=== PATIENT | female | born 1970 | race Two or more races ===

== ENCOUNTER 2017-09-11 18:01 | Emergency (ER) | payer OTHER, MEDICAID ==
[~2017-09-11] VITALS: Ht 162.6 cm; Wt 72.6 kg
[~2017-09-11 18:01] MED LIST: GLIMEPIRIDE1 MG ORAL; METFORMIN HCL500 M1 ORAL; OMEPRAZOLE40 M1 ORAL; PEPCID40 MG PO
[2017-09-11 18:34] VITALS: BP 125/81
--- NOTE | 2017-09-11 19:05 | Emergency Room Report ---
History of Present Illness General Chief Complaint: General Complaint Source: Patient, Medical Record Present Illness HPI 47 yo female patient presents to ER complaining of right shoulder pain radiating down her arm x 1 week. Patient reports pain with movement of arm; states pain shoots down shoulder. Denies hx of injury. Patient reports sleeping on her right side. Patient denies fever, chest pain, SOB. Denies hx of cardiovascular disease. Allergies: Coded Allergies: No Known Allergies (Unverified , 03/09/16) Patient History Past Medical History: see triage record Reviewed Nursing Documentation: PMH: Agreed, PSxH: Agreed Nursing Documentation-PMH Past Medical History: No History, Except For Hx Diabetes: Yes Review of Systems All Other Systems: negative except mentioned in HPI Physical Exam Vital Signs Date Time Temp Pulse Resp B/P (MAP) Pulse Ox O2 Delivery O2 Flow Rate FiO2 09/11/17 18:17 98.8 93 18 125/81 94 Room Air 98.8 Sp02 EP Interpretation: reviewed, normal General Appearance: well appearing, no apparent distress, alert, GCS 15 Head: normocephalic, atraumatic Eyes: bilateral eye normal inspection, bilateral eye PERRL ENT: hearing grossly normal, normal pharynx, no angioedema, normal voice, uvula midline, moist mucus membranes Neck: full range of motion Respiratory: lungs clear, normal breath sounds, no rhonchi, no respiratory distress, no accessory muscle use, no wheezing, speaking full sentences Cardiovascular #1: regular rate, rhythm, no edema Cardiovascular #2: 2+ carotid (R), 2+ carotid (L), 2+ radial (R), 2+ radial (L) Gastrointestinal: non tender, soft, no mass, non-distended, no guarding, no rebound Genitourinary: no CVA tenderness Musculoskeletal: back normal, digits/nails normal, gait/station normal, normal range of motion, other - Negative Adson sign; positive tinel, positive phalen; NVI, tender - right shoulder Neurologic: alert, oriented x3, responsive, motor strength/tone normal, sensory intact Psychiatric: mood/affect normal Skin: no rash Lymphatic: no adenopathy Medical Decision Making PA Attestation Dr. Gao is my supervising Physician whom patient management has been discussed with. Diagnostic Impression: Primary Impression: Shoulder pain Additional Impression: Upper extremity pain ER Course Pt. presents to the ED c/o right shoulder pain. Ddx considered but are not limited to fracture, sprain, strain, contusion, carpal tunnel syndrome. Patient TTP of right shoulder, has full ROM of shoulder, elbow, and wrist. Shoulder movement with pain. Ordered xray right shoulder. Vital signs: are WNL, pt. is afebrile ORDERS: An X-ray of the right shoulder was ordered, results show no acute fracture, per the preliminary radiology report. ER COURSE: Positive Tinel sign, positive Phalen sign. Patient likely has some median nerve entrapment or irritation. Need to followup with primary care provider for further treatment and referral. Will not place arm in sling, want patient to being ROM exercises for shoulder. Patient reports palpitations with shoulder pain late at night, reports palpitations today. Carotid pulse 2+ bilaterally. Denies hx of arrhythmia. Ordered EKG. Pain medication ordered. EKG negative for arrhythmia, ST elevation. Results discussed with patient. Patient instructed to followup with primary care provider for further treatment and referral to cardiology. Patient reports feeling better following administration of pain medication. DISCHARGE: -Rx provided for Tylenol for pain symptoms. At this time pt. is stable for d/c to home. Patient resting comfortably, in no acute distress, nontoxic appearing, smiling. Will provide printed patient care instructions, and any necessary prescriptions. Patient instructed to follow with primary care provider in 3 - 5 days and to request further orthopedic follow-up. Care plan and follow up instructions have been discussed with the patient prior to discharge. Patient instructed on RICE method: rest, ice, compression, elevation. Patient instructed to WBAT. Take medications as directed. Patient questions asked and answered. ER precautions given, patient instructed to return to ER immediately for any new or worsening of symptoms. EKG Diagnostic Results Rate: normal Rhythm: NSR ST Segments: no acute changes ASA given to the pt in ED: No PA Scribe Text Alejandro Martini PA-C Rhythm Strip Diag. Results EP Interpretation: yes Rate: 87 Rhythm: NSR, no PVC's, no ectopy PA Scribe Julien Martini PA-C Other X-Ray Diagnostic Results Other X-Ray Diagnostic Results : X-Ray ordered: right shoulder # of Views/Limited Vs Complete: 3 View Indication: Pain EP Interpretation: Yes PA Xray: Interpretation reviewed, by supervising MD, and agrees with findings. Interpretation: no dislocation, no soft tissue swelling, no fractures Impression: No acute disease SHWETA Traylor Text Alejandro Martini PA-C Last Vital Signs Date Time Temp Pulse Resp B/P (MAP) Pulse Ox O2 Delivery O2 Flow Rate FiO2 09/11/17 18:34 98.8 18 125/81 94 Room Air 98.8 09/11/17 18:17 93 Disposition: HOME, SELF-CARE Condition: Stable Scripts Acetaminophen* (TYLENOL EXTRA STRENGTH*) 500 Mg Tablet 500 MG ORAL Q8H Y for Prn Headache/Temp > 101, #30 TAB 0 Refills Prov: Zelalem Martini 09/11/17 Patient Instructions: Carpal Tunnel Syndrome, [id number], Shoulder Pain, Easy -to-Read, Shoulder Range of Motion Exercises Additional Instructions: Patient instructed to follow up with primary care provider and discuss further referral to orthopedics for further imaging. Pain may be due to median nerve irritation or entrapment. Followup with cardiology for chest pain and palpitations. Patient instructed on RICE method: rest, ice, compression, elevation. Patient instructed to Weight Bearing As Tolerated. Take medications as directed. Patient questions asked and answered. ER precautions given, patient instructed to return to ER immediately for any new or worsening of symptoms. Zelalem Martini Sep 11, 2017 19:05
[2017-09-11] MEDS ORDERED: TYLENOL EXTRA500 MG ORAL (20:01)
[2017-09-11] MEDS ORDERED: Ketorolac 30mg Inj IM ONE (20:15)
[2017-09-11 20:32] VITALS: BP 125/81
--- NOTE | 2017-09-12 10:29 | Diagnostic Imaging Report ---
Indication: Shoulder pain Findings: 3 views of the right shoulder were obtained. There is a focus of calcification in the rotator cuff adjacent to the greater tuberosity. There is no fracture. There is arthrosis at the acromioclavicular joint. The clavicle is slightly subluxed indicative of a previous ACL injury. IMPRESSION: Mild AC separation. Acuity indeterminate. Mild arthrosis noted. Calcific tendinopathy of the rotator cuff.
--- NOTE | 2017-09-19 16:09 | Cardiology Report ---
APPROVED REPORT EKG Measurement Heart [id number] HI [id number] Normal sinus rhythm Normal ECG
== END 2017-09-11 20:34 | disposition home or self-care (01) ==
LOC: EMR 19:58
DX: M25.511 Pain in right shoulder (principal); M75.31 Calcific tendinitis of right shoulder; S43.101A Unspecified dislocation of right acromioclavicular joint, initial encounter; X58.XXXA Exposure to other specified factors, initial encounter; Y92.9 Unspecified place or not applicable; M19.011 Primary osteoarthritis, right shoulder; E11.9 Type 2 diabetes mellitus without complications
CPT/HCPCS: 29240; 73030; 93005; 96372; 99283; J1885

== ENCOUNTER 2018-09-19 00:57 | Emergency (ER) | payer MEDICAID, OTHER ==
[~2018-09-19] VITALS: Ht 162.6 cm; Wt 88.5 kg
[~2018-09-19 00:57] MED LIST changes: +TYLENOL EXTRA500 MG ORAL
--- NOTE | 2018-09-19 01:00 | NUR ---
ED Nurse Note: Patient not in waiting room, Registration states patient went to the bathroom
--- NOTE | 2018-09-19 01:42 | NUR ---
ED Nurse Note: Pt arrived ED from home, c/o N/V on and off for one week and abdominal pain 01/15. Pt is A/O X4. Vital signs stable at this time, waitng for orders.
[2018-09-19 01:45] VITALS: BP 136/78
--- NOTE | 2018-09-19 01:58 | NUR ---
ED Nurse Note: Blood and urine collected and sent to Lab.
[2018-09-19 02:24] LABS: HEMATOCRIT 41.7 % (37.0-47.0); HEMOGLOBIN 14.1 G/DL (12.0-16.0); MEAN CORPUSCULAR VOLUME 80 FL (80-99); PLATELET COUNT 294 K/UL (150-450); RED BLOOD COUNT 5.19 M/UL (4.20-5.40); RED CELL DISTRIBUTION WIDTH 12.4 % (11.6-14.8); WHITE BLOOD COUNT 9.7 K/UL (4.8-10.8)
[2018-09-19 02:26] LABS: ANION GAP 9 mmol/L (5-15); BLOOD UREA NITROGEN 19 mg/dL (7-18); CALCIUM 8.8 MG/DL (8.5-10.1); CARBON DIOXIDE 26 MMOL/L (21-32); CHLORIDE 101 MMOL/L (98-107); CREATININE 0.8 MG/DL (0.55-1.30); POTASSIUM 3.8 MMOL/L (3.5-5.1); SODIUM 136 MMOL/L (136-145)
[2018-09-19 02:32] LABS: ALANINE AMINOTRANSFERASE 36 U/L (12-78); ALBUMIN 3.6 G/DL (3.4-5.0); ALBUMIN/GLOBULIN RATIO 0.9 (1.0-2.7); ALKALINE PHOSPHATASE 96 U/L (46-116); ASPARTATE AMINO TRANSFERASE 12 U/L (15-37); BILIRUBIN,TOTAL 0.5 MG/DL (0.2-1.0)
[2018-09-19] MEDS ORDERED: Morphine Sulfate 2mg/ml Inj(IV/IM USE ONLY) IVP ONE (02:45)
--- NOTE | 2018-09-19 02:50 | NUR ---
ED Nurse Note: Need more urine sample.
[2018-09-19 03:13] LABS: APPEARANCE,URINE CLEAR; BILIRUBIN, URINE NEGATIVE (NEGATIVE); COLOR,URINE PALE YELLOW; GLUCOSE, URINE (UA) NEGATIVE (NEGATIVE); KETONES,URINE 4+ (NEGATIVE); LEUKOCYTE ESTERASE ,URINE 1+ (NEGATIVE); NITRITE,URINE NEGATIVE (NEGATIVE); PH,URINE 6 (4.5-8.0); PROTEIN,URINE NEGATIVE (NEGATIVE); UROBILINOGEN,URINE NORMAL MG/DL (0.0-1.0)
[2018-09-19] MEDS ORDERED: Isovue-300 100ml vial INJ PRN (04:30)
[2018-09-19] MEDS ORDERED: LOMOTIL TABLET1 EACH ORAL (05:41)
[2018-09-19] MEDS ORDERED: DICYCLOMINE HCL10 MG PO (05:41)
[2018-09-19] MEDS ORDERED: PEPCID AC20 M2 PO (05:41)
[2018-09-19 06:18] VITALS: BP 132/74
--- NOTE | 2018-09-19 06:18 | NUR ---
ER DISCHARGE NOTE: Patient is cleared to be discharged per Dr. Hawthorne. Pt is A/O x4 on room air with stable vital signs. Pt was given dc and prescription instructions, pt was able to verbalize understanding. Pt ID band and iv site removed without complications, pt is able to ambulate with steady gait, pt took all belongings.
--- NOTE | 2018-09-19 10:41 | Diagnostic Imaging Report ---
Clinical Indication: Abdominal pain for 3 days Technique: No oral contrast utilized, per emergency room physician request IV administration nonionic contrast. Venous phase spiral acquisition obtained through the abdomen and pelvis. Multiplanar reconstructions were generated. Total dose length product 1007.52 mGycm. CTDIvol(s) 18.4 mGy. Dose reduction achieved using automated exposure control Comparison: none Findings: There is evidence of prior appendectomy, with surgical staple seen adjacent to the cecum. No evidence of diverticulosis or diverticulitis. Small bowel loops are nondilated, containing fluid distally. Distal esophagus, stomach, duodenum are unremarkable. No free or loculated intraperitoneal gas or fluid is evident. The gallbladder is surgically absent. The liver, bile ducts, pancreas, spleen, adrenals, kidneys are unremarkable. No pelvic mass or adenopathy. Uterus and adnexal structures are unremarkable. No retroperitoneal or mesenteric mass or adenopathy. There is a round 15 mm subcutaneous lesion in the lumbar region to the left of midline. There is some edema or scarring in the midline lumbar region. The bones are unremarkable except for minimal degenerative spondylosis changes. The included lung bases are clear.. Impression: No acute abnormality Evidence of prior appendectomy and cholecystectomy 15 mm subcutaneous lesion in the left lumbar region, probably process such as a sebaceous cyst This agrees with the preliminary interpretation provided overnight by [facility]. The CT scanner at [facility] is accredited by the [employer] and the scans are performed using protocols designed to limit radiation exposure to as low as reasonably achievable to attain images of sufficient resolution adequate for diagnostic evaluation.
--- NOTE | 2018-10-11 07:33 | Emergency Room Report ---
History of Present Illness General Chief Complaint: Nausea, Vomiting, and Diarrhea Source: Patient Present Illness HPI Patient is a 48-year-old female presented after increased nausea and vomiting. Patient reports having nonbilious nonbloody emesis associated with some diarrhea. Patient reports having increased crampy abdominal pain. Patient denies any fever. She did not been having any she denies having any localized pain. Pain was not noted to have any exacerbating or alleviating factors. Allergies: Coded Allergies: No Known Allergies (Unverified , 03/09/16) Patient History Past Medical History: see triage record Last Menstrual Period: n/a : 3 Para: 3 Reviewed Nursing Documentation: PMH: Agreed; PSxH: Agreed Nursing Documentation-PMH Past Medical History: No History, Except For Hx Diabetes: Yes Review of Systems All Other Systems: negative except mentioned in HPI Physical Exam Sp02 EP Interpretation: reviewed, normal General Appearance: normal inspection, well appearing, no apparent distress, alert, GCS 15, non-toxic Head: atraumatic ENT: normal ENT inspection, hearing grossly normal, normal voice Neck: normal inspection, full range of motion, supple, no bony tend Respiratory: normal inspection, lungs clear, normal breath sounds, no respiratory distress, no retraction, no wheezing Cardiovascular #1: regular rate, rhythm, no edema Gastrointestinal: normal inspection, non tender, soft, no guarding, no hernia Genitourinary: no CVA tenderness Musculoskeletal: normal inspection, back normal, normal range of motion Neurologic: normal inspection, alert, oriented x3, responsive, certification officer III-XII nml as tested, speech normal Psychiatric: normal inspection, judgement/insight normal, mood/affect normal Skin: normal inspection, normal color, no rash Medical Decision Making Diagnostic Impression: Primary Impression: Gastroenteritis ER Course Patient presented for abdominal pain. Differential diagnoses included ischemic bowel, appendicitis, perforated viscus, abdominal aortic aneurysm, inferior myocardial infarction, viral gastroenteritis among others. Because of complexity of patient's case laboratory testing and imaging studies were ordered. Laboratory testing was essentially unremarkable. Patient was noted to have some significant abdominal pain and CT imaging was ordered. CT imaging of the abdomen pelvis read by radiology showed no evidence of acute appendicitis. Patient appears to have gastroenteritis. She is advised dietary modifications and was given prescription for medications for symptomatic treatment. The patient is advised to follow up with primary care doctor in 1- 2 days. Patient is advised to return if any worsening condition or if any changes in status that are concerning. This report is dictated with [employer] data center operator software which may occasionally lead to discrepancies related to use of this software. Labs Test 09/19/18 01:58 09/19/18 03:03 White Blood Count 9.7 K/UL (4.8-10.8) Red Blood Count 5.19 M/UL (4.20-5.40) Hemoglobin 14.1 G/DL (12.0-16.0) Hematocrit 41.7 % (37.0-47.0) Mean Corpuscular Volume 80 FL (80-99) Mean Corpuscular Hemoglobin 27.2 PG (27.0-31.0) Mean Corpuscular Hemoglobin Concent 33.9 G/DL (32.0-36.0) Red Cell Distribution Width 12.4 % (11.6-14.8) Platelet Count 294 K/UL (150-450) Mean Platelet Volume 8.7 FL (6.5-10.1) Neutrophils (%) (Auto) % (45.0-75.0) Lymphocytes (%) (Auto) % (20.0-45.0) Monocytes (%) (Auto) % (1.0-10.0) Eosinophils (%) (Auto) % (0.0-3.0) Basophils (%) (Auto) % (0.0-2.0) Prothrombin Time 10.6 SEC (9.30-11.50) Prothromb Time International Ratio 1.0 (0.9-1.1) Activated Partial Thromboplast Time 27 SEC (23-33) Urine HCG, Qualitative Negative (NEGATIVE) Sodium Level 136 MMOL/L (136-145) Potassium Level 3.8 MMOL/L (3.5-5.1) Chloride Level 101 MMOL/L (98-107) Carbon Dioxide Level 26 MMOL/L (21-32) Anion Gap 9 mmol/L (5-15) Blood Urea Nitrogen 19 mg/dL (7-18) Creatinine 0.8 MG/DL (0.55-1.30) Estimat Glomerular Filtration Rate > 60 mL/min (>60) Glucose Level 242 MG/DL (74-106) Calcium Level 8.8 MG/DL (8.5-10.1) Total Bilirubin 0.5 MG/DL (0.2-1.0) Aspartate Amino Transf (AST/SGOT) 12 U/L (15-37) Alanine Aminotransferase (ALT/SGPT) 36 U/L (12-78) Alkaline Phosphatase 96 U/L (46-116) Troponin I 0.000 ng/mL (0.000-0.056) Total Protein 7.6 G/DL (6.4-8.2) Albumin 3.6 G/DL (3.4-5.0) Globulin 4.0 g/dL Albumin/Globulin Ratio 0.9 (1.0-2.7) Lipase 87 U/L (73-393) Urine Color Pale yellow Urine Appearance Clear Urine pH 6 (4.5-8.0) Urine Specific [place] 1.020 (1.005-1.035) Urine Protein Negative (NEGATIVE) Urine Glucose (UA) Negative (NEGATIVE) Urine Ketones 4+ (NEGATIVE) Urine Blood 2+ (NEGATIVE) Urine Nitrite Negative (NEGATIVE) Urine Bilirubin Negative (NEGATIVE) Urine Urobilinogen Normal MG/DL (0.0-1.0) Urine Leukocyte Esterase 1+ (NEGATIVE) Urine RBC 2-4 /HPF (0 - 2) Urine WBC 0-2 /HPF (0 - 2) Urine Squamous Epithelial Cells Few /LPF (NONE/OCC) Urine Bacteria Few /HPF (NONE) Status: improved Disposition: HOME, SELF-CARE Condition: Stable Scripts Diphenoxylate Hcl/Atropine (LOMOTIL TABLET) 1 Each Tablet 1 TAB ORAL Q12HR for diarhea, #10 TAB 0 Refills Prov: Te Hawthorne MD 09/19/18 Famotidine (PEPCID AC) 20 Mg Tablet 20 MG PO DAILY, #30 TAB Prov: Te Hawthorne MD 09/19/18 Dicyclomine Hcl* (DICYCLOMINE HCL*) 10 Mg Capsule 10 MG PO QID, #30 CAP Prov: Te Hawthorne MD 09/19/18 Patient Instructions: Viral Gastroenteritis, Adult Te Hawthorne MD Oct 11, 2018 07:33
== END 2018-09-19 06:18 | disposition home or self-care (01) ==
LOC: EMR 01:13
DX: K52.9 Noninfective gastroenteritis and colitis, unspecified (principal); E11.9 Type 2 diabetes mellitus without complications
CPT/HCPCS: 36415; 74177; 80053; 81003; 81025; 83690; 84484; 85025; 85610; 85730; 96361; 96374; 96375; 99284; J2270; J2405; Q9967; S0028

== ENCOUNTER 2018-11-20 21:02 | Emergency (ER) | payer MEDICAID ==
[~2018-11-20] VITALS: Ht 162.6 cm; Wt 90.7 kg
[~2018-11-20 21:02] MED LIST changes: +DICYCLOMINE HCL10 MG PO; +LOMOTIL TABLET1 EACH ORAL; +PEPCID AC20 M2 PO
[2018-11-20] MEDS ORDERED: ALBUTEROL SULF8.5 GM INH (21:15)
[2018-11-20 21:29] VITALS: BP 141/95
--- NOTE | 2018-11-20 21:29 | NUR ---
ED Nurse Note: Pt arrived ED from home. c/o Lower abdominal pain and back pain 7/10 for 2 days. Pt is A/O X4. Vital signs stable at this time, waiting for orders.
[2018-11-20] MEDS ORDERED: Morphine Sulfate 4mg/ml Inj (IV USE ONLY) IVP ONE (22:00)
--- NOTE | 2018-11-20 22:02 | Emergency Room Report ---
History of Present Illness General Chief Complaint: Back Pain-No Injury Source: Patient Present Illness HPI Is a 48-year-old female who had a previous history of appendectomy and cholecystectomy. She presents with chief complaint of right upper quadrant pain going to her back. On and off for last week. Worse with eating. No fever chills area has nausea but no vomiting. No diarrhea. Pain is 8 out of 10. No trauma. Similar to previous cholecystectomy. Allergies: Coded Allergies: No Known Allergies (Unverified , 03/09/16) Patient History Past Medical History: see triage record, old chart reviewed Past Surgical History: appy, steff Pertinent Family History: none Last Menstrual Period: 11/03/18 Now: No Immunizations: other Reviewed Nursing Documentation: PMH: Agreed; PSxH: Agreed Nursing Documentation-PMH Past Medical History: No History, Except For Hx Asthma: Yes Hx Diabetes: Yes Review of Systems Eye: Denies: eye pain, blurred vision ENT: Denies: ear pain, nose congestion, throat swelling Respiratory: Denies: cough, shortness of breath Cardiovascular: Denies: chest pain, palpitations Gastrointestinal: Reports: abdominal pain, nausea; Denies: diarrhea, vomiting Musculoskeletal: Denies: back pain, joint pain Skin: Denies: rash Neurological: Denies: headache, numbness Endocrine: Denies: increased thirst, increased urine Hematologic/Lymphatic: Denies: easy bruising All Other Systems: negative except mentioned in HPI Physical Exam Vital Signs Date Time Temp Pulse Resp B/P (MAP) Pulse Ox O2 Delivery O2 Flow Rate FiO2 11/20/18 21:08 98.1 94 18 100 Room Air vitals unremarkable Sp02 EP Interpretation: reviewed, normal General Appearance: well appearing, no apparent distress, alert Head: normocephalic, atraumatic Eyes: bilateral eye PERRL, bilateral eye EOMI ENT: hearing grossly normal, normal pharynx Neck: full range of motion, supple, no meningismus Respiratory: chest non-tender, lungs clear, normal breath sounds Cardiovascular #1: regular rate, rhythm, no murmur Gastrointestinal: normal bowel sounds, no mass, no organomegaly, no bruit, non- distended, tenderness - right upper quadrant Musculoskeletal: back normal, gait/station normal, normal range of motion Psychiatric: mood/affect normal Skin: warm/dry Medical Decision Making Diagnostic Impression: Primary Impression: Pyelonephritis Additional Impression: Abdominal pain Qualified Codes: R10.11 - Right upper quadrant pain ER Course Patient presents with abdominal pain and back pain. She does have right upper quadrant pain and CVA tenderness. CT scan unremarkable. No evidence of any retained stone. No evidence of any obstruction. Her pain is better now. We' ll discharge home. CT/MRI/US Diagnostic Results CT/MRI/US Diagnostic Results : Imaging Test Ordered: CT abdomen and pelvis Impression negative per radiologist Last Vital Signs Date Time Temp Pulse Resp B/P (MAP) Pulse Ox O2 Delivery O2 Flow Rate FiO2 11/20/18 21:08 98.1 94 18 100 Room Air Status: improved Disposition: HOME, SELF-CARE Condition: Stable Scripts Ibuprofen* (MOTRIN*) 600 Mg Tablet 600 MG ORAL THREE TIMES A DAY, #30 TAB 0 Refills Prov: Delmar Lao MD 11/20/18 Cephalexin* (KEFLEX*) 500 Mg Capsule 500 MG ORAL TID, #21 CAP Prov: Delmar Lao MD 11/20/18 Referrals: NOT CHOSEN [facility]/,REFERRING (PCP) Additional Instructions: Follow-up with your doctor in 7 days. Return if worse. Delmar Lao MD November 20, 2018 22:02
--- NOTE | 2018-11-20 22:40 | NUR ---
ED Nurse Note: Blood collected and sent to Lab.
[2018-11-20 22:47] LABS: BASOPHILS % (AUTO) 0.9 % (0.0-2.0); EOSINOPHILS % (AUTO) 0.9 % (0.0-3.0); HEMATOCRIT 34.8 % (37.0-47.0); HEMOGLOBIN 11.5 G/DL (12.0-16.0); LYMPHOCYTES % (AUTO) 32.4 % (20.0-45.0); MEAN CORPUSCULAR VOLUME 81 FL (80-99); MONOCYTES % (AUTO) 4.1 % (1.0-10.0); NEUTROPHILS % (AUTO) 61.7 % (45.0-75.0); PLATELET COUNT 220 K/UL (150-450); RED CELL DISTRIBUTION WIDTH 13.5 % (11.6-14.8); WHITE BLOOD COUNT 11.1 K/UL (4.8-10.8)
--- NOTE | 2018-11-20 22:48 | NUR ---
ED Nurse Note: Urine collected and sent to Lab.
[2018-11-20 22:52] LABS: APPEARANCE,URINE CLOUDY; BILIRUBIN, URINE NEGATIVE (NEGATIVE); GLUCOSE, URINE (UA) NEGATIVE (NEGATIVE); KETONES,URINE 1+ (NEGATIVE); LEUKOCYTE ESTERASE ,URINE 2+ (NEGATIVE); NITRITE,URINE NEGATIVE (NEGATIVE); PH,URINE 7 (4.5-8.0); PROTEIN,URINE 1+ (NEGATIVE); UROBILINOGEN,URINE 1 MG/DL (0.0-1.0)
--- NOTE | 2018-11-20 22:55 | NUR ---
ED Nurse Note: Pt was sent down for CT of Abdomen.
[2018-11-20 22:57] LABS: ANION GAP 7 mmol/L (5-15); BLOOD UREA NITROGEN 17 mg/dL (7-18); CALCIUM 8.3 MG/DL (8.5-10.1); CARBON DIOXIDE 28 MMOL/L (21-32); CHLORIDE 103 MMOL/L (98-107); CREATININE 0.7 MG/DL (0.55-1.30); POTASSIUM 3.9 MMOL/L (3.5-5.1); SODIUM 138 MMOL/L (136-145)
[2018-11-20 22:58] LABS: COLOR,URINE YELLOW
[2018-11-20 23:00] LABS: ALANINE AMINOTRANSFERASE 14 U/L (12-78); ALBUMIN 3.1 G/DL (3.4-5.0); ALBUMIN/GLOBULIN RATIO 0.8 (1.0-2.7); ALKALINE PHOSPHATASE 92 U/L (46-116); ASPARTATE AMINO TRANSFERASE 8 U/L (15-37); BILIRUBIN,TOTAL 0.2 MG/DL (0.2-1.0)
--- NOTE | 2018-11-20 23:13 | NUR ---
ED Nurse Note: Pt returned from CT of Abdomen.
[2018-11-20] MEDS ORDERED: cefTRIAXone 1 GM in NS 55 ML IVPB ONE (23:45)
[2018-11-20] MEDS ORDERED: IBUPROFEN600 MG ORAL (23:46)
[2018-11-20] MEDS ORDERED: CEPHALEXIN500 MG ORAL (23:46)
[2018-11-20 23:55] VITALS: BP 139/91
--- NOTE | 2018-11-20 23:55 | NUR ---
ER DISCHARGE NOTE: Patient is cleared to be discharged per Dr. Lao. CT done, Meds given . Pt is aox4 on room air with stable vital signs. Pt was given dc and prescription instructions and was able to verbalize understanding. Pt's IV and ID band removed. Pt is able to ambulate with steady gait and took all belongings.
--- NOTE | 2018-11-21 09:48 | Diagnostic Imaging Report ---
Indication: Abdominal pain Technique: Continuous helical transaxial imaging of the abdomen and pelvis was obtained from the lung bases to the pubic symphysis. No intravenous contrast was administered. Coronal 2-D reformats were also obtained. Automatic Exposure Control was utilized. Total Dose length Product (DLP): 1114.[address] Dose Index Volume (CTDIvol): 19.28 mGy Comparison: none Findings: Lung bases are clear. Gallbladder is absent. No nephrolithiasis or hydronephrosis demonstrated. Bowel gas pattern is nonobstructive. Appendectomy noted. Suggestion of a 2 cm left ovarian cyst demonstrated. This may be confirmed by ultrasound. The bladder is unremarkable. Uterus noted. No free fluid identified. Solid organ evaluation is limited due to non-IV contrast administration. IMPRESSION: Suggestion of a 2 cm cyst left ovary. Correlation with ultrasound suggested No acute findings otherwise. Multiple incidental findings as above. [facility] has communicated the preliminary results to the Emergency Department. Their findings are largely concordant with this report. The CT scanner at [facility] is accredited by the [employer] and the scans are performed using dose optimization techniques as appropriate to a performed exam including Automatic Exposure control.
== END 2018-11-20 23:55 | disposition home or self-care (01) ==
LOC: EMR 21:51
DX: N12 Tubulo-interstitial nephritis, not specified as acute or chronic (principal); R10.11 Right upper quadrant pain; E11.9 Type 2 diabetes mellitus without complications; Z90.89 Acquired absence of other organs; Z90.49 Acquired absence of other specified parts of digestive tract
CPT/HCPCS: 36415; 74176; 80053; 81003; 81025; 83690; 85025; 87086; 96361; 96365; 96375; 99284; J0696; J2270; J2405